=== PATIENT | female | born 2000 | race Caucasian/White ===

== ENCOUNTER 2023-10-27 18:01 | Emergency (ER) | payer BC, MEDICAID, SELFPAY ==
[2023-10-27 18:10] VITALS: BP 121/72; PULSE 125; RESP 18; TEMP 36.8; O2SAT 98; BMI 38.9
[2023-10-27 18:13] VITALS: BP 130/75; PULSE 93; RESP 18; O2SAT 97
[2023-10-27 19:00] VITALS: O2SAT 93
--- NOTE | 2023-10-27 19:07 | W.ED.COVID ---
HPI - COVID General: Chief Complaint: COVID symptoms Stated Complaint: Feverish,N/V Time Seen by Provider: 10/27/23 18:19 Triage information: Has fever, cough or shortness of breath. No known COVID + exposure last 14 days History of Present Illness: 23-year-old female comes in today with illness on and off for the last 3 weeks. Patient reports that she starts feeling better then becomes ill again. Patient is 4 weeks . Patient has nasal congestion, sore throat, body aches. COVID Results: SARS-CoV-2 Antigen (Rapid) Negative (Negative) 10/27/23 19:08 Review of Systems General: Reports: 10 or more systems reviewed and unremarkable except in HPI and below Physical Exam Const: COMMON NORMALS: alert HENMT: COMMON NORMALS: normocephalic HEAD & SCALP: normocephalic NOSE: Nasal discharge present MOUTH: Normal oral and palatal mucosa present THROAT: posterior oropharynx abnormal erythema Neck/C-Spine: COMMON NORMALS: full ROM Resp: COMMON NORMALS: normal respiratory effort and clear to auscultation bilaterally AUSCULTATION: clear to auscultation bilaterally Cardio: COMMON NORMALS: regular rate RATE: regular rate GI: COMMON NORMALS: Soft to palpation and non-tender PALPATION: Yes Soft to palpation Back/Pelvis: COMMON NORMALS: thoracic and lumbar spine normal to inspection Extremity: COMMON NORMALS: no pedal edema Neuro: SENSORIUM/ORIENTATION: Yes alert Skin: COMMON NORMALS: turgor normal GENERAL SKIN EXAM: turgor normal Course Vital Signs: Vital signs: Vital Signs Temperature 98.3 F 10/27/23 18:10 Pulse Rate 93 10/27/23 18:13 Respiratory Rate 18 10/27/23 18:13 Blood Pressure 130/75 10/27/23 18:13 Pulse Oximetry 93 10/27/23 19:00 Oxygen Delivery Me thod Room Air 10/27/23 19:00 MDM - COVID Medical Decision Making 23-year-old female comes in today with upper respiratory infection. Patient reports illness on and off for 3 weeks. On exam patient's posterior pharynx is erythematous with exudate to tonsils. Lungs are clear to auscultation. Patient has a lot of nasal discharge. Differential diagnosis includes influenza, COVID, strep pharyngitis, viral syndrome, upper respiratory infection. Strep test was positive. Influenza and COVID were negative. Will treat for strep pharyngitis recommend otherwise [id number] medicine as needed cough and congestion. Patient reported understanding agreed to plan. Lab Data Laboratory Results Influenza Type A Ag negative (Negative) 10/27/23 19:08 Influenza Type B Ag negative (Negative) 10/27/23 19:08 SARS-CoV-2 Ag (Rapid) Negative (Negative) 10/27/23 19:08 Group A Strep Rapid Positive (Negative) H 10/27/23 19:08 SARS-CoV-2 Antigen (Rapid) Negative (Negative) 10/27/23 19:08 No radiology studies performed this visit Discharge Plan Discharge Patient Disposition: Home Clinical Impression: Strep pharyngitis Upper respiratory infection Qualifiers: URI type: unspecified URI Qualified Code(s): J06.9 - Acute upper respiratory infection, unspecified Condition: Stable Prescriptions: New amoxicillin-pot clavulanate 875-125 mg tablet 1 tab PO BID Qty: 14 0RF Discharge Orders: Discharge ED (Routine); Ordered 10/27/23 Ordered By: Apollo Adame Referrals: Miguel Cevallos MD [Primary Care Provider] - Discharge Diet: Usual diet Discharge Activity: Increase activity as tolerated Patient Instructions: Strep Throat (ED) Activity Restrictions/Additional Instructions: Take antibiotics as directed. Drink plenty of water and fluids. Use acetaminophen as needed for pain and fever. Follow-up with primary care or [facility] for further instructions. Coding Level of Care Code ED Flex[employer] Folder Gluer Operator for Patricia Bryan
[2023-10-27 19:21] LABS: Rapid Strep A Test Positive (Negative)
[2023-10-27 19:29] LABS: Influenza A by IFA negative (Negative); Influenza B by IFA negative (Negative)
[2023-10-27 19:31] LABS: SARS Covid-2 Antigen Negative (Negative)
[2023-10-27] MEDS: amoxicillin-clav 875-125 mg Tablet 1 TAB PO (19:37)
[2023-10-27 20:02] VITALS: BP 130/75; PULSE 93; RESP 18; TEMP 36.8; O2SAT 93
== END 2023-10-27 20:02 | disposition home or self-care (01) ==
PROVIDERS: Emergency Provider Nurse Practitioner Family; PCP Family Medicine
DX: O99.511 Diseases of the respiratory system complicating pregnancy, first trimester (principal); J02.0 Streptococcal pharyngitis; Z3A.01 Less than 8 weeks gestation of pregnancy; Z11.52 Encounter for screening for COVID-19
CPT/HCPCS: 87426; 87804; 87880; 99283

== ENCOUNTER 2024-01-17 11:28 | Emergency (ER) | payer MEDICAID, SELFPAY ==
[2024-01-17 11:33] VITALS: BP 118/77; PULSE 78; RESP 16; TEMP 36.6; O2SAT 99
--- NOTE | 2024-01-17 13:37 | ED_ITS ---
HPI - Headache 2 General: Chief Complaint: Headache Stated Complaint: 16 weeks preg, headache, N/V Time Seen by Provider: 01/17/24 12:14 Source: patient Mode of arrival: ambulatory Limitations: no limitations History of Present Illness: Patient is a 23-year-old female at approximately 16 weeks here for complaints of a headache as well as some nausea and vomiting. She has had nausea and vomiting throughout her so this is not anything new. 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 She does not take any medications at home for headaches apart from occasional Tylenol. Will be providers Dr. Cevallos. She does have an appointment with him next week. She is not having any neurologic deficits. States headache is worse with light and sound. MD elicited complaint: headache Onset (ago): day(s) (two days) Onset description: gradually Severity: moderate Pain scale (0-10): 7 Exacerbating factors: light and noise Relieving factors: nothing Associated symptoms: Reports no associated symptoms, nausea and vomiting; Deny chest pain, confusion, fever(s), malaise or rash Treatments prior to arrival: none Review of Systems 2 Const: Denies: fever(s), chills, body aches, fatigue or malaise Eyes: Denies: change in vision, blurry vision, floaters or seeing flashes Card: Denies: chest pain Resp: Denies: dyspnea GI: Reports: nausea and vomiting; Denies: abdominal pain or hematemesis : Denies: flank pain or dysuria Musc: Denies: neck pain, back pain, extremity pain or joint pain Skin/Breast: Denies: rash Neuro: Reports: headache(s); Denies: numbness in extremities, weakness in extremities, sensory changes, lack of coordination, difficulty walking, frequent falls, dizziness, vertigo, confusion, Slurred speech present, difficulty communicating thoughts or seizure- like activity Physical Exam 2 Const: COMMON NORMALS: no acute distress, average body habitus, patient oriented x3, no limitations, healthy appearing, alert and well nourished G ENERAL APPEARANCE: cooperative ORIENTATION/CONSCIOUSNESS: Yes awake, Yes oriented to person, Yes oriented to place and Yes oriented to time HENMT: COMMON NORMALS: normocephalic and atraumatic HEAD & SCALP: normal to inspection, normocephalic and atraumatic FACE & SINUS: normal facial exam Eye: COMMON NORMALS: Equal, round and reactive pupils present and EOMs intact bilaterally GENERAL EYE: appearance normal, both eyes and all related structures and normal light reflex PUPIL: Yes Equal, round and reactive pupils present DIRECT OPHTHALMOSCOPY: Yes normal light reflex Neck/C-Spine: COMMON NORMALS: full ROM and no meningeal signs Resp: COMMON NORMALS: normal respiratory effort Cardio: COMMON NORMALS: regular rate and regular rhythm RATE: regular rate RHYTHM: regular rhythm Extremity: COMMON NORMALS: no clubbing, cyanosis or edema, no calf tenderness and no pedal edema Neuro: SHAYY COMA SCALE: document GCS findings Shayy coma scale eye opening: Spontaneous [place] coma scale verbal response: Orientated Shayy coma scale motor response: Obey commands [place] coma scale total score: 15 COMMON NORMALS: patient oriented x3, CN's II-XII intact bilaterally, moves all extremities, no focal motor deficits, no sensory deficits noted and gait normal SENSORIUM/ORIENTATION: Yes alert, Yes oriented to person, Yes oriented to place and Yes oriented to time MENINGEAL SIGNS: Yes no meningeal signs Skin: COMMON NORMALS: no rashes or lesions noted GENERAL SKIN EXAM: no rashes or lesions noted Course 2 Vital Signs: Vital signs: Vital Signs Temperature 97.8 F 01/17/24 11:33 Pulse Rate 75 01/17/24 13:38 Respiratory Rate 16 01/17/24 13:38 Blood Pressure 118/77 01/17/24 13:38 Pulse Oximetry 98 01/17/24 13:38 Oxygen Delivery Me thod Room Air 01/17/24 13:38 MDM - Headache Medical Decision Making Patient states she feels better after IV fluids, acetaminophen, reglan, and diphenhydramine. She states she feels comfortable going home at this time. Recommend follow-up with her PCP/OB next week as scheduled. Differential Diagnosis Likely migraine and headache Lab Data 01/17/24 14:16 01/17/24 14:16 Laboratory Results WBC 13.84 10^3/uL (3.29-11.43) H 01/17/24 14:16 RBC 4.09 10^6/uL (3.85-5.65) 01/17/24 14:16 Hgb 13.40 g/dL (11.27-16.99) 01/17/24 14:16 Hct 39.2 % (36-47) 01/17/24 14:16 MCV 95.8 fl (85-98) 01/17/24 14:16 MCH 32.8 pg (27-33) 01/17/24 14:16 MCHC 34.2 g/dL (30-55) 01/17/24 14:16 RDW 13.5 % (12.1-15.1) 01/17/24 14:16 Plt Count 243 10^3/cmm (157-399) 01/17/24 14:16 MPV 11.4 fL (7.4-10.4) H 01/17/24 14:16 Neut % (Auto) 87.1 % 01/17/24 14:16 Lymph % (Auto) 9.8 % 01/17/24 14:16 [place] % (Auto) 2.4 % 01/17/24 14:16 Eos % (Auto) 0.1 % 01/17/24 14:16 Baso % (Auto) 0.2 % 01/17/24 14:16 Neut # (Auto) 12.05 10^3/uL (1.8-7.7) H 01/17/24 14:16 Lymph # (Auto) 1.4 10^3/uL (0.8-4.8) 01/17/24 14:16 [place] # (Auto) 0.3 10^3/uL (0.2-0.9) 01/17/24 14:16 Eos # (Auto) 0.0 10^3/uL (0.0-0.8) 01/17/24 14:16 Baso # (Auto) 0.0 10^3/uL (0.0-0.1) 01/17/24 14:16 Nucleated RBC % (auto) 0 % 01/17/24 14:16 Nucleated RBCs # 0.0 /100WBC 01/17/24 14:16 Sodium 136 mmol/L (136-145) 01/17/24 14:16 Potassium 4.5 mmol/L (3.5-5.1) 01/17/24 14:16 Chloride 102 mmol/L (98-107) 01/17/24 14:16 Carbon Dioxide 22 mmol/L (22-29) 01/17/24 14:16 Anion Gap 16.5 (5-19) 01/17/24 14:16 BUN 8 mg/dL (6-20) 01/17/24 14:16 Creatinine 0.5 mg/dL (0.5-0.9) 01/17/24 14:16 GFR Calculation 150.3 mL/min (90-130) H 01/17/24 14:16 Glucose 91 mg/dL (65-115) 01/17/24 14:16 Calculated Osmolality 280 mOsm/kg (285-295) L 01/17/24 14:16 Calcium 9.1 mg/dL (8.5-10.5) 01/17/24 14:16 Total Bilirubin 0.2 mg/dL (0.15-1.2) 01/17/24 14:16 AST 11 U/L (0-32) 01/17/24 14:16 ALT 19 U/L (0-33) 01/17/24 14:16 Alkaline Phosphatase 105 U/L (35-105) 01/17/24 14:16 Total Protein 8.2 g/dL (6.6-8.7) 01/17/24 14:16 Albumin 3.9 g/dL (3.5-5.2) 01/17/24 14:16 Globulin 4.3 g/dL (1.3-4.6) 01/17/24 14:16 No radiology studies performed this visit Discharge Plan Discharge Patient Disposition: Home Clinical Impression: Headache Qualifiers: Headache type: unspecified Headache chronicity pattern: acute headache I ntractability: not intractable Qualified Code(s): R51.9 - Headache, unspecified Condition: Stable Prescriptions: No Action amoxicillin-pot clavulanate 875-125 mg tablet 1 tab PO BID Qty: 14 0RF Discharge Orders: Discharge ED (Routine); Ordered 01/17/24 Ordered By: Nette Landon Referrals: Miguel Cevallos MD [Primary Care Provider] - Coding Level of Care Code ED Breastfeeding Educator for Patricia Bryan
[2024-01-17 13:38] VITALS: BP 118/77; PULSE 75; RESP 16; O2SAT 98
[2024-01-17 14:22] LABS: Basophils % 0.2 %; Eosinophils % 0.1 %; Hematocrit 39.2 % (36-47); Lymphocytes # 1.4 10^3/uL (0.8-4.8); Lymphocytes % 9.8 %; Mean Corpuscular HGB Conc 34.2 g/dL (30-55); Mean Corpuscular Hemoglobin 32.8 pg (27-33); Mean Corpuscular Volume 95.8 fl (85-98); Mean Platelet Volume 11.4 fL (7.4-10.4); Monocytes # 0.3 10^3/uL (0.2-0.9); Monocytes % 2.4 %; Neutrophils # 12.05 10^3/uL (1.8-7.7); Neutrophils % 87.1 %; Nucleated Red Blood Cells % 0 %; Platelet Count 243 10^3/cmm (157-399); Red Blood Count 4.09 10^6/uL (3.85-5.65); Red Cell Distribution Width 13.5 % (12.1-15.1); White Blood Count 13.84 10^3/uL (3.29-11.43)
[2024-01-17] MEDS: sodium chloride 0.9% 1,000 ML 999 ML IV (14:25)
[2024-01-17] MEDS: diphenhydrAMINE 50 mg/mL SDV 1mL 25 MG IVP (14:26)
[2024-01-17] MEDS: metoclopramide 5 mg/mL SDV 2 mL 10 MG IVP (14:26)
[2024-01-17] MEDS: acetaminophen 1,000 MG/100 ML PIGGYBACK 400 MG IV (14:27)
[2024-01-17 14:38] LABS: Alanine Aminotransferase 19 U/L (0-33); Albumin Level 3.9 g/dL (3.5-5.2); Alkaline Phosphatase 105 U/L (35-105); Anion Gap 16.5 (5-19); Aspartate Amino Transferase 11 U/L (0-32); Blood Urea Nitrogen 8 mg/dL (6-20); Calcium 9.1 mg/dL (8.5-10.5); Carbon Dioxide 22 mmol/L (22-29); Chloride 102 mmol/L (98-107); Creatinine Clr Calc Pharmacy 188.3328; Globulin 4.3 g/dL (1.3-4.6); Glomerular Filtration Rate 150.3 mL/min (90-130); Glucose 91 mg/dL (65-115); Osmolality Calculated 280 mOsm/kg (285-295); Potassium 4.5 mmol/L (3.5-5.1); Sodium 136 mmol/L (136-145); Total Bilirubin 0.2 mg/dL (0.15-1.2); Total Protein 8.2 g/dL (6.6-8.7)
[2024-01-17 15:39] VITALS: BP 122/78; PULSE 76; RESP 16; TEMP 36.6; O2SAT 99
== END 2024-01-17 15:40 | disposition home or self-care (01) ==
PROVIDERS: Emergency Provider Physician Assistant; PCP Family Medicine
DX: R51.9 Headache, unspecified (principal)
CPT/HCPCS: 80053; 85025; 96365; 96375; 99284; J0131; J1200; J2765; J7030

== ENCOUNTER 2024-02-11 15:59 | Emergency (ER) | payer BC, MEDICAID, SELFPAY ==
[2024-02-11 16:04] VITALS: BP 118/68; PULSE 89; RESP 16; TEMP 36.4; O2SAT 98; BMI 38.6
--- NOTE | 2024-02-11 17:08 | W.ED.NEUROSD ---
HPI - Neuro Symptoms/Deficit General: Chief Complaint: Neuro Symptoms/Deficit Stated Complaint: left side numbness, headache Time Seen by Provider: 02/11/24 16:38 Source: patient Mode of arrival: ambulatory History of Present Illness: 23-year-old female history of ocular migraines. She is at 20 weeks gestation she presents emergency room after having an ocular migraine earlier today developing some left leg then arm and face numbness and discomfort. The headache resolved and all of her other symptoms resolved same time. She contacted her primary care doctor they recommended she come to the emergency room. Her NIH score at time of presentation is 0 she has no further symptoms at this time. No residual headache blood pressure is not elevated. Associated symptoms: Deny chest pain Review of Systems Const: Denies: fever(s) or chills Card: Denies: chest pain Resp: Denies: dyspnea GI: Denies: abdominal pain : Denies: dysuria, urinary frequency or urinary urgency Musc: Denies: neck pain or back pain Skin/Breast: Denies: rash PFSH ED PFSH: Medical History (Updated 02/11/24 @ 17:45 by Koko Brand DO) Migraines Female Reproductive History: Date of last menstrual period: 09/22/23 NIH stroke score NIHSS: Level Of Consciousness - 1a: 0 Level Of Consciousness Questions - 1b: Both Correct Level Of Consciousness Commands - 1c: Both Correct Best Gaze - 2: Normal Visual Duran - 3: No Visual Loss Facial Palsy - 4: Normal Motor Arm Right - 5: No Drift Motor Arm Left - 5: No Drift Motor Leg Right - 6: No Drift Motor Leg Left - 6: No Drift Limb Ataxia - 7: Absent Sensory - 8: Normal Best Language - 9: No Aphasia Dysarthia - 10: Normal Extinction And Inattention - 11: 0 Score: Total Score: 0 Physical Exam Const: COMMON NORMALS: no acute distress GENERAL APPEARANCE: cooperative and comfortable ORIENTATION/CONSCIOUSNESS: Yes awake, Yes oriented to person, Yes oriented to place and Yes oriented to time HENMT: COMMON NORMALS: normocephalic, atraumatic and hearing grossly normal bilaterally HEAD & SCALP: normocephalic and atraumatic Resp: COMMON NORMALS: normal respiratory effort, No retractions, No use of accessory muscles and clear to auscultation bilaterally AUSCULTATION: clear to auscultation bilaterally Cardio: COMMON NORMALS: regular rate, regular rhythm and No murmurs present (Cardio) RATE: regular rate RHYTHM: regular rhythm GI: COMMON NORMALS: Soft to palpation and No hepatosplenomegaly present AUSCULTATION: Yes normoactive bowel sounds PALPATION: Yes Soft to palpation, No Tenderness to palpation present (GI), No Guarding due to palpation present (GI) and Yes No hepatosplenomegaly present Extremity: COMMON NORMALS: normal to inspection, capillary refill normal, no clubbing, cyanosis or edema, no calf tenderness and no pedal edema Neuro: SENSORIUM/ORIENTATION: Yes oriented to person, Yes oriented to place and Yes oriented to time Skin: COMMON NORMALS: no rashes or lesions noted GENERAL SKIN EXAM: no rashes or lesions noted Course Vital Signs: Vital signs: Vital Signs Temperature 97.6 F 02/11/24 18:41 Pulse Rate 82 02/11/24 18:41 Respiratory Rate 16 02/11/24 18:41 Blood Pressure 117/66 02/11/24 18:41 Pulse Oximetry 100 02/11/24 18:41 Oxygen Delivery Me thod Room Air 02/11/24 17:27 MDM - Neuro Symptoms/Deficit Medical Decision Making NIH score 0. Discussed case with Dr. Ballard he agrees this is most likely a migraine variant especially since all her symptoms resolved with a headache resolved she does not have any elevated blood pressure. We did do a brief bedside ultrasound just to identify motion and cardiac activity. Both of which were present demonstrated to the patient. Per Dr. Ballard's recommendation we will get hypercoagulability labs and a carotid ultrasound to have her follow-up with him in the office. I also did contact Dr. Cevallos since this is his regular OB patient just advised him of the patient's course of care and the recommendations from Dr. Ballard at the time of discharge. Reviewed findings with the patient based on her history and exam and Dr. Ballard's recommendation and she was agreeable to the plan of care. Medical Records I reviewed the patient's medical records. Lab Data I reviewed the patient's lab results. No radiology studies performed this visit Discharge Plan Discharge Patient Disposition: Home Clinical Impression: Migraine variant, Second trimester Condition: Stable Prescriptions: No Action amoxicillin-pot clavulanate 875-125 mg tablet 1 tab PO BID Qty: 14 0RF Discharge Orders: Discharge ED (Routine); Ordered 02/11/24 Ordered By: Koko Brand Referrals: Miguel Cevallos MD [Primary Care Provider] - Patient Instructions: Opioid Safety, Pain Management Activity Restrictions/Additional Instructions: Thank you for choosing [facility] for your healthcare needs today. Please realize this is an emergency room and that we are providing you with a medical screening exam and this may not be complete and all inclusive of all the testing and or work up that you may need to determine your ailment or severity of your illness. It is very important that you follow up as instructed or that you return to the Emergency Department should you have concerns or if your condition changes or worsens in any way. Case management will make arrangements for you to follow-up with neurology as well as get testing done that neurology has recommended prior to seeing you. Coding Level of Care Code ED City Surveyor for Patricia Bryan
[2024-02-11 17:27] VITALS: BP 125/82; PULSE 90; O2SAT 99
[2024-02-11 18:40] VITALS: BP 117/66; PULSE 82; O2SAT 100
[2024-02-11 18:41] VITALS: BP 117/66; PULSE 82; RESP 16; TEMP 36.4; O2SAT 100
--- NOTE | 2024-02-13 16:15 | DCPLANNER ---
sent us carotid order to scheduling for er f/u
== END 2024-02-11 18:43 | disposition home or self-care (01) ==
PROVIDERS: Emergency Provider Family Medicine; PCP Family Medicine
DX: O26.892 Other specified pregnancy related conditions, second trimester (principal); G43.809 Other migraine, not intractable, without status migrainosus; Z3A.20 20 weeks gestation of pregnancy
CPT/HCPCS: 99281

== ENCOUNTER 2024-06-26 03:34 | Inpatient (IN) | payer MEDICAID, SELFPAY ==
[2024-06-26] VITALS (29 sets, daily range): BP systolic 107–141; BP diastolic 61–85; PULSE 73–141; RESP 16–18; TEMP 36.3–37.2; O2SAT 96–98; BMI 44.6
[2024-06-26] MEDS: fentaNYL 50 mcg/mL INJ 2mL IVP (03:54)
[2024-06-26 03:58] LABS: Basophils % 0.3 %; Eosinophils # 0.1 10^3/uL (0.0-0.8); Eosinophils % 0.8 %; Hematocrit 36.3 % (36-47); Lymphocytes # 2.7 10^3/uL (0.8-4.8); Lymphocytes % 22.8 %; Mean Corpuscular HGB Conc 33.9 g/dL (30-55); Mean Corpuscular Hemoglobin 33.5 pg (27-33); Mean Corpuscular Volume 98.9 fl (85-98); Mean Platelet Volume 11.5 fL (7.4-10.4); Monocytes # 0.9 10^3/uL (0.2-0.9); Monocytes % 7.9 %; Neutrophils # 8.03 10^3/uL (1.8-7.7); Neutrophils % 67.9 %; Nucleated Red Blood Cells % 0 %; Platelet Count 209 10^3/cmm (157-399); Red Blood Count 3.67 10^6/uL (3.85-5.65); Red Cell Distribution Width 14.1 % (12.1-15.1); White Blood Count 11.83 10^3/uL (3.29-11.43)
[2024-06-26] MEDS: oxytocin 30 UNIT/500 ML BAG 600 UNIT IV (06:00)
--- NOTE | 2024-06-26 06:18 | PM.OPHPUD ---
Labor & Delivery H&P Update Date of Procedure: June 26, 2024 Date H&P Performed: 06/25/24 Changes to previous documentation: The patient was 5 cm on admission with consistent contractions. Admission Diagnosis: 24-year-old 2 para 1-0-0-1 at 40 weeks and 5 days in active labor Planned procedure: Vaginal delivery Other information: The patient arrived to the hospital last night after having had contractions since 6:00 yesterday evening. Upon arrival she was noted to have consistent contractions about every 5 minutes. Her membranes were intact. heart tones were reactive. The patient has had an unremarkable . Her labs also been relatively unremarkable. Her blood type is O+. Her antibody screen is negative. She failed her initial glucose screen but passed her 3-hour. She is rubella immune. She is GBS negative. Her infectious disease profile was within normal limits. Related Problem List Diagnoses (1) 40 weeks gestation of : A&P Assessment and plan (1) 40 weeks gestation of : I anticipate routine labor and delivery. Status: Acute
[2024-06-26] MEDS: dextrose 5%-lactated ringers 1,000 ML 125 ML IV (06:24)
--- NOTE | 2024-06-26 06:34 | PM.DELIVERY ---
Delivery Note: Date of delivery: June 26, 2024 Pre-delivery diagnoses: 24-year-old 2 at 40 weeks and 5 days in active labor Post-delivery diagnoses: Status post spontaneous vaginal delivery Procedure: Spontaneous vaginal delivery Delivering Physician: Miguel Cevallos Estimated blood loss (mL): 150 Pre-Delivery Course: The patient presented to the hospital in active labor. Her contractions were occurring every 5 minutes or less. She made good cervical change. She did receive 1 dose of fentanyl. She progressed to complete without difficulty. Delivery: DELIVERY: The patient progressed to complete without difficulty. She delivered a male with a weight of 3640 g with Apgars of 8, 9. The baby was delivered from the EMILIO position. The baby's mouth and nose were suctioned at the site of the perineum. The baby was then completely delivered and placed on the mother's abdomen. The cord was then clamped and cut. There was a nuchal cord x 1. The baby was delivered through the cord. There was no meconium. The placenta and 3 vessel cord were delivered intact shortly thereafter. The perineum and vaginal vault were carefully examined. No lacerations were noted. Both the mother and the baby were in stable condition. Post-Delivery Status: Good History History History 2 Term 1 0 Miscarriages/Ectopic 0 Living Children 1 A&P Assessment and plan (1) Spontaneous vaginal delivery: I anticipate routine care. Coding Level of Care Code Acute Code for Chg Fwd Diagnoses Spontaneous vaginal delivery O80
[2024-06-26] MEDS: HYDROcodone-acetaminophen 5-325 mg Tablet PO ×3 (07:13→18:11)
[2024-06-26] MEDS: benzocaine-menthol 78 gm Canister 1 SPRAY TOPICAL (07:13)
[2024-06-26] MEDS: lanolin oint 7 gm 1 APPLIC TOPICAL (07:13)
[2024-06-26] MEDS: PRENATAL VIT NO.130/IRON/FOLIC 1 EACH TABLET PO (09:34)
[2024-06-26] MEDS: docusate sodium 100 mg Capsule PO ×2 (09:34→18:11)
[2024-06-26] MEDS: ibuprofen 800 mg tablet PO ×3 (09:34→21:02)
[2024-06-26 18:23] LABS: Hematocrit 34.8 % (36-47); Mean Corpuscular HGB Conc 33.3 g/dL (30-55); Mean Corpuscular Hemoglobin 33.7 pg (27-33); Mean Corpuscular Volume 101.2 fl (85-98); Mean Platelet Volume 11.8 fL (7.4-10.4); Platelet Count 220 10^3/cmm (157-399); Red Blood Count 3.44 10^6/uL (3.85-5.65); Red Cell Distribution Width 14.1 % (12.1-15.1); White Blood Count 15.54 10^3/uL (3.29-11.43)
[2024-06-27 04:04] VITALS: BP 117/75; PULSE 77; RESP 16; O2SAT 97
--- NOTE | 2024-06-27 04:07 | PC.NURSE ---
This nurse notified patient of next dose of hydrocodone at 0600 and ibuprofen at 0900. offered heating pad or tylenol to take, MOB states tylenol doesnt really work for me, I'll just try and rest until the next dose
[2024-06-27] MEDS: HYDROcodone-acetaminophen 5-325 mg Tablet PO ×2 (06:02)
[2024-06-27] MEDS: docusate sodium 100 mg Capsule PO (09:18)
[2024-06-27] MEDS: PRENATAL VIT NO.130/IRON/FOLIC 1 EACH TABLET PO (09:18)
[2024-06-27] MEDS: ibuprofen 800 mg tablet PO (09:19)
[2024-06-27 09:20] VITALS: BP 122/75; PULSE 77; RESP 17; TEMP 36.9
--- NOTE | 2024-06-27 10:12 | P.DS_ITS ---
Discharge Providers [employer] Date of Admission: 06/26/24 03:34 Date of Discharge: 06/27/24 Attending Provider at Admission: Miguel Cevallos MD Attending Provider at Discharge: Miguel Cevallos MD Primary Care Provider: Miguel Cevallos MD Diagnoses at Discharge Discharge Diagnosis (1) Spontaneous vaginal delivery: Status: Acute Reason for Visit Reason for Visit: contractions Hospital Course Hospital Course The patient presented to the hospital in active labor. She progressed to complete and had an unremarkable vaginal delivery in about 3 hours. Her bleeding was within normal limits. She had no tears. Her course was also unremarkable. Her bleeding was within normal limits. She breast-fed well. Her pain was well-controlled. Information Peripartum Data: Infant Delivery Method: Vaginal Physical Exam Narrative: The patient is alert. She appears comfortable. Her heart has a regular rate and rhythm with no murmurs appreciated. Lungs are clear to auscultation bilaterally. Her fundus is firm and below the umbilicus. History History History 2 Term 1 0 Miscarriages/Ectopic 0 Living Children 1 Discharge Data Studies Completed and Pending Pending at discharge Category Date Time Status Retype for Patiets ABO/Rh Routine Lab 06/26/24 19:46 Ordered Laboratory Results WBC 15.54 10^3/uL (3.29-11.43) H 06/26/24 18:00 RBC 3.44 10^6/uL (3.85-5.65) L 06/26/24 18:00 Hgb 11.60 g/dL (11.27-16.99) 06/26/24 18:00 Hct 34.8 % (36-47) L 06/26/24 18:00 MCV 101.2 fl (85-98) H 06/26/24 18:00 MCH 33.7 pg (27-33) H 06/26/24 18:00 MCHC 33.3 g/dL (30-55) 06/26/24 18:00 RDW 14.1 % (12.1-15.1) 06/26/24 18:00 Plt Count 220 10^3/cmm (157-399) 06/26/24 18:00 MPV 11.8 fL (7.4-10.4) H 06/26/24 18:00 Neut % (Auto) 67.9 % 06/26/24 03:40 Lymph % (Auto) 22.8 % 06/26/24 03:40 [place] % (Auto) 7.9 % 06/26/24 03:40 Eos % (Auto) 0.8 % 06/26/24 03:40 Baso % (Auto) 0.3 % 06/26/24 03:40 Neut # (Auto) 8.03 10^3/uL (1.8-7.7) H 06/26/24 03:40 Lymph # (Auto) 2.7 10^3/uL (0.8-4.8) 06/26/24 03:40 [place] # (Auto) 0.9 10^3/uL (0.2-0.9) 06/26/24 03:40 Eos # (Auto) 0.1 10^3/uL (0.0-0.8) 06/26/24 03:40 Baso # (Auto) 0.0 10^3/uL (0.0-0.1) 06/26/24 03:40 Nucleated RBC % (auto) 0 % 06/26/24 03:40 Nucleated RBCs # 0.0 /100WBC 06/26/24 03:40 Blood Type O Positive 06/26/24 18:00 Rho(D) Type Rh positive 06/26/24 18:00 Antibody Screen Negative 06/26/24 18:00 Vitals Last Vital Signs Temp 98.5 F 06/27/24 09:20 Pulse 77 06/27/24 09:20 Resp 17 06/27/24 09:20 BP 122/75 06/27/24 09:20 Pulse Ox 97 06/27/24 04:04 O2 Del Method Room Air 06/27/24 04:04 Results Labs OB ([facility]): Blood Type O Positive 06/26/24 Antibody Screen Negative 06/26/24 Hct 34.8 % (36-47) L 06/26/24 Hgb 11.60 g/dL (11.27-16.99) 06/26/24 Rho(D) Type Rh positive 06/26/24 Plt Count 220 10^3/cmm (157-399) 06/26/24 Discharge Plan Discharge Patient Disposition: Home Condition: Stable Prescriptions: New ibuprofen 800 mg Tablet 800 mg PO TID Qty: 45 0RF Continued [id number] oil 400 mcg-35 mg -25 mg-5 mg Tablet,Chewable 1 tab PO 1XD Discontinued valacyclovir 1 gram Tablet 1,000 mg PO BID Discharge Orders: Discharge Order (Routine); Ordered 06/27/24 Ordered By: Miguel Cevallos Referrals: Miguel Cevallos MD [Primary Care Provider] - 6 Weeks Discharge Diet: Usual diet Discharge Activity: Limit activity as instructed Patient Instructions: Depression (DC), Bleeding (DC), Preeclampsia and Eclampsia After Delivery (GEN), Hemorrhage (DC), OB Discharge Report, OB Food/Drug Interaction Guide, Opioid Safety, OB Home Care, OB Proud Parent Packet, OB Vaginal Deliveries Discharge Attestations [employer] Time Spent in Discharge Care*: less than 30 min Coding Level of Care Code Acute Code for Chg Fwd Diagnoses Spontaneous vaginal delivery O80
[2024-06-27 10:50] VITALS: BP 127/76; PULSE 86; RESP 16; TEMP 36.6; O2SAT 97
[2024-06-27 11:15] VITALS: BP 127/76; PULSE 86; RESP 16; TEMP 36.6; O2SAT 97
== END 2024-06-27 11:15 | disposition home or self-care (01) | DRG 807 ==
LOC: OPOB 03:34 → OBGYN 03:34
PROVIDERS: Admitting Provider Family Medicine; PCP Family Medicine; Visit Provider Family Medicine
DX: O80 Encounter for full-term uncomplicated delivery (principal); Z37.0 Single live birth; Z3A.40 40 weeks gestation of pregnancy
CPT/HCPCS: 36415; 59025; 59409; 85025; 85027; 86850; 86900; 99211; J2590; J3010; J7121